=== PATIENT | female | born 2000 | race Caucasian/White ===

== ENCOUNTER 2019-01-05 15:27 | Outpatient (CLI) | payer MEDICAID, OTHER ==
[~2019-01-05] VITALS: Ht 167.6 cm; Wt 92.3 kg
[2019-01-05 15:51] VITALS: BP 130/87
[2019-01-05 16:08] LABS: BASOPHILS # (AUTO) 0.04 x10^3/uL (0-0.1); BASOPHILS % (AUTO) 1 % (0-1); EOSINOPHILS # (AUTO) 0.21 x10^3/uL (0-0.4); EOSINOPHILS % (AUTO) 3 % (1-7); LYMPHOCYTES # (AUTO) 1.62 x10^3/uL (1-3.4); LYMPHOCYTES % (AUTO) 21 % (22-44); MD NO; MEAN CORPUSCULAR HEMOGLOBIN 28.9 pg (27.0-34.8); MEAN CORPUSCULAR HGB CONC 32.3 g/dL (32.4-35.8); MEAN CORPUSCULAR VOLUME 89.6 fL (80-100); MEAN PLATELET VOLUME 9.1 fL (7.4-10.4); MONOCYTES % (AUTO) 8 % (2-9); NEUTROPHILS # (AUTO) 5.45 x10^3/uL (1.8-6.8); NEUTROPHILS % (AUTO) 69 % (42-75); PLATELET COUNT 199 x10^3/uL (130-400); RED BLOOD COUNT 4.01 x10^6/uL (3.82-5.3); RED CELL DISTRIBUTION WIDTH 13.3 % (9.6-15.2)
[2019-01-05 16:16] LABS: CHLORIDE 110 mmol/L (98-107)
[2019-01-05 16:21] LABS: ALANINE AMINOTRANSFERASE 14 U/L (12-78); ALBUMIN 2.6 g/dL (3.4-5.0); ALKALINE PHOSPHATASE 142 U/L (45-117); ANION GAP 7 mmol/L (5-15); BILIRUBIN,TOTAL 0.2 mg/dL (0.2-1.0); CALCIUM 8.9 mg/dL (8.5-10.1); CREATININE 0.56 mg/dL (0.55-1.02); TOTAL PROTEIN 6.3 g/dL (6.4-8.2)
[2019-01-10] MEDS ORDERED: PREN1TAB60 PO (07:12)
[2019-01-10] MEDS ORDERED: FAMO-79 PO (07:13)
[2019-01-10] MEDS ORDERED: OXYTOCIN 30U/ 0.9% NaCL 500ML 500 ML ONE (19:32)
[2019-01-10] MEDS ORDERED: IBUPROFEN 800 MG TABLET ONE (20:02)
[2019-01-11] MEDS ORDERED: IBUP-1222 PO (17:54)
== END 2019-01-05 23:59 | disposition home or self-care (01) ==
LOC: LDOP 15:27
PROVIDERS: ATTEND Obstetrics & Gynecology
DX: Z34.83 Encounter for supervision of other normal pregnancy, third trimester (principal); Z3A.38 38 weeks gestation of pregnancy
CPT/HCPCS: 36415; 59025; 80053; 82570; 84156; 84550; 85025; 99211; G0463

== ENCOUNTER 2019-01-09 12:47 | Inpatient (IN) | payer MEDICAID, OTHER ==
[~2019-01-09] VITALS: Ht 167.6 cm; Wt 92.5 kg
[2019-01-11 12:40] VITALS: BP 116/76
== END 2019-01-11 18:55 | disposition home or self-care (01) | DRG 807 ==
LOC: LDIP 21:19 → 2NW 01-10 21:02
PROVIDERS: ADMIT Obstetrics & Gynecology; ATTEND Obstetrics & Gynecology
PROC: 10E0XZZ Delivery of Products of Conception, External Approach (ICD-10-PCS; principal; 2019-01-10)
PROC: 0HQ9XZZ Repair Perineum Skin, External Approach (ICD-10-PCS; 2019-01-10)
PROC: 3E0R3BZ Introduction of Anesthetic Agent into Spinal Canal, Percutaneous Approach (ICD-10-PCS; 2019-01-10)
PROC: 00HU33Z Insertion of Infusion Device into Spinal Canal, Percutaneous Approach (ICD-10-PCS; 2019-01-10)
DX: O36.5930 Maternal care for other known or suspected poor fetal growth, third trimester, not applicable or unspecified (principal); Z37.0 Single live birth; Z3A.39 39 weeks gestation of pregnancy; O13.4 Gestational [pregnancy-induced] hypertension without significant proteinuria, complicating childbirth; O70.1 Second degree perineal laceration during delivery
CPT/HCPCS: 36415; J3490; S0020; 80053; 81001; 82248; 82570; 83615; 84156; 84550; 85025; 86850; 86900; G0378; J3010; J2590; J7050; J7120